=== PATIENT | female | born 1985 | race Caucasian/White ===

== ENCOUNTER 2020-06-02 14:22 | Observation (INO) ==
[2020-06-02] MEDS ORDERED: RINGER'S SOLUTION,LACTATED 1,000 ML IV PRN (16:27)
[2020-06-02] MEDS ORDERED: MAGNESIUM SULFATE IN WATER 50 ML, MAGNESIUM SULFATE IN WATER 50 ML IV ONE ×2 (16:27)
[2020-06-02] MEDS ORDERED: CALCIUM GLUCONATE 4.65 MEQ/10 ML VIAL IV PRN (16:27)
[2020-06-02] MEDS ORDERED: MAGNESIUM SULFATE IN WATER 1,000 ML IV SCH (16:30)
[2020-06-02 16:42] VITALS: BP 124/85
[2020-06-02] MEDS ORDERED: BETAMETHASONE ACETATE,SOD PHOS 6 MG/ML VIAL IM ONE (17:00)
--- NOTE | 2020-06-02 17:11 | HP ---
Chief Complaint - Chief Complaint Date of Service: 06/02/20 Time of Service: 16:56 Chief Complaint: elevated LFTs, r/o severe preeclampsia History of Present Illness: 34 yo at 33 2/7 weeks presented today for routine OB visit with elev ated/labile BPs (133/99, 154/87, 121/77). CBC, CMP, and Pr/Cr ratio revealed elevated AST of 101 and ALT of 158. Patient admits to seeing occasional flashes of light over the past couple days (non currently) and mild epigastric tenderness. She denies headache, edema, recent illness, taking any medications other than her PNV, n/v/f/c, sore throat, or cough. This complicated by breech presentation, obesity, hypothyroidism controlled on no meds, h/o preeclampsia, and prior LTCS. 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 Closed patellar dislocation (Resolved) Foot pain, left (Resolved) Internal derangement of knee (Resolved) Kidney stone Onset Date: 05/01/19 Knee contusion (Resolved) Knee pain, left (Resolved) Onset Date: ~07/22/18 Patellar dislocation (Resolved) Onset Date: ~07/22/18 Pre-eclampsia Onset Date: 2010 2010 Refused influenza vaccine (Resolved) Onset Date: ~09/11/18 Surgical History: Surgical History (Last Reviewed 06/02/20 @ 17:04 by Glenroy Sandoval DO) Previous section (Chronic) Onset Date: 10/05/10 H/O adenoidectomy Onset Date: ~2007 H/O hernia repair Onset Date: Unknown History of Onset Date: ~10/05/10 failure to progress, NRFHT History of cholecystectomy Onset Date: ~2010 Dr. George History of dilation and curettage Onset Date: 06/20/19 Suction curettage History of tonsillectomy Onset Date: ~12/02/07 History of wisdom tooth extraction Onset Date: Unknown Family History: Family History (Last Reviewed 06/02/20 @ 17:04 by Glenroy Sandoval DO) Grandmother , maternal Diabetes Father Hypertension Mother Alive and well Grandfather , maternal Leukemia Grandfather , paternal Myocardial infarction Daughter Hypertension Brother Kidney stone Social History: (Last Reviewed 06/02/20 @ 17:04 by Glenroy Sandoval DO) Social History: adopted: No care home: No Marital status: household members: spouse number of children: 1 current occupational status: other 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 current occupational exposures/hazards: No Highest level of school completed/degree received: Associate degree: [employer] Sexually Active: Yes Service: No Tobacco: Smoking Status: Never smoker Alcohol: alcohol intake: current alcohol intake frequency: holiday/special occasion details: No alcohol since +UPT Substance Use: substance use type: does not use Dietary Habits: caffeine: Yes caffeine comment: 10 oz/day Type: carbonated beverages Exercise: frequency: does not exercise Yulisa/[employer]: agree to transfusion: Yes Review Of Systems (GEN) - Review of Systems Generalized/Overall Review: Present: No Symptoms Reported EENTM: Present: No Symptoms Reported Respiratory: Present: No Symptoms Reported Cardiac: Present: No Symptoms Reported Abdominal: Present: Abdominal Pain - mild epigastric discomfort Genitourinary: Present: No Symptoms Reported Musculoskeletal: Present: Back Pain - low back Neurological: Present: No Symptoms Reported Skin: Present: No Symptoms Reported Endocrine: Present: No Symptoms Reported Immunizations: IMMUNIZATION HX Immunizations Up to Date Yes History of Influenza Vaccine Yes Hx Pneumococcal Vaccination No Allergies/Adverse Reactions: Allergies Allergy/AdvReac Type Severity Reaction Status Date / Time Sulfa (Sulfonamide AdvReac Mild Diarrhea Verified 06/02/20 16:32 Antibiotics) sulfabenzamide AdvReac Mild Diarrhea Verified 06/02/20 16:32 Home Medications: HOME MEDICATIONS aspirin 81 mg tablet,delayed release 81 mg PO DAILY 04/28/20 [Last Taken Unknown] ferrous sulfate 325 mg (65 mg iron) tablet 325 mg PO DAILY #30 tab 04/28/20 [Last Taken Unknown] magnesium citrate 100 mg tablet 200 mg PO DAILY tab 04/28/20 [Last Taken Unknown] Vits96/Iron Fum/Folic [ S] 1 tab PO DAILY 06/02/20 [Last Taken Unknown] Exam - Exam Vital Signs: Vital Signs - Last Taken Temp 36.4 C 06/02/20 16:40 Pulse 109 H 06/02/20 16:40 Resp 16 06/02/20 16:40 BP 124/85 06/02/20 16:40 Pulse Ox 100 06/02/20 16:40 Constitutional: Present: Alert, Oriented x3, Cooperative, No distress ENT Exam: Present: hearing grossly normal Neck: Present: non-tender, trachea midline. Absent: thyromegaly Breasts: Present: Exam deferred Respiratory: Present: lungs clear, no respiratory distress Cardiovascular/Chest: Present: normal peripheral pulses, regular rate, rhythm, no edema, tachycardia - mild Abdomen: Present: soft, no rebound tenderness, tender - mild epigastric discomfort, other - Gravid /Rectal: Present: Exam deferred Extremity: Present: no pedal edema, no calf tenderness Skin Exam: Present: normal color, warm/dry, no cyanosis. Absent: jaundice Lymphatic: Present: no adenopathy Neurologic: Present: alert, normal mood/affect, oriented x 3 Appearance: Present: appropriate appearance, appropriate insight Eye contact: Present: cooperative, good eye contact, normal speech Thoughts: Present: normal thought pattern, normal mood /affect Assessment/Plan - Procedures Results: Admit to L&D for magnesium sulfate for seizure prophylaxis, betamethasone, and IV access. Discussed condition with Dr. Calzada at [facility] who recommends transfer to [facility] L&D with her as the accepting Dr. R/b/a to transfer discussed with the patient and she agrees with transfer. All questions answered. Transfer via ambulance to [facility] L&D on IV magnesium sulfate 2g/h. - Assessment/Plan (1) Preeclampsia Problem: Acute Qualifiers: Trimester: third trimester Qualified Code(s): O14.93 - Unspecified pre- eclampsia, third trimester (2) Elevated liver enzymes Assessment: r/o HELLP Problem: Acute (3) Obesity, morbid, BMI 40.0-49.9 Problem: Chronic (4) Previous section Problem: Chronic (5) Hypothyroid Problem: Resolved Qualifiers:
--- NOTE | 2020-06-02 17:38 | DS ---
Transfer Discharge Summary - Diagnosis(s)/Problems (1) Preeclampsia Problem: Suspected (2) Elevated liver enzymes Problem: Acute (3) Obesity, morbid, BMI 40.0-49.9 Problem: Chronic (4) Previous section Problem: Chronic (5) Hypothyroid Problem: Resolved - Course Description of Stay: Patient admitted to L&D from office for possible preeclampsia with severe features (elevated liver enzymes). She was started on IV magnesium sulfate 6g load, then 2g/h IV drip, given betamethasone 12mg IM x 1, and transferred to [facility] via ambulance in stable condition for further evaluation/tx. At time of transfer, patient had no SOB, chest pain, headache, abdominal pain, n/v/f/c, vaginal bleeding, or LOF. Consultation Done:: Dr. Melania Calzada Procedures Performed: see notes below - IV access, magnesium sulfate, betamethasone, NST - Medications Medications: Active Medications Lactated Ringer's (Lactated Ringers) 1,000 mls @ 30 mls/hr IV .Q24H PRN PRN Reason: HYDRATION Stop: 07/02/20 16:28 Last Admin: 06/02/20 16:55 Dose: 30 mls/hr Documented by: Magnesium Sulfate (Magnesium Sulfate 40 Gm) 1,000 mls @ 50 mls/hr IV .Q20H HAILY; Protocol Stop: 07/02/20 16:31 Last Admin: 06/02/20 17:20 Dose: 50 mls/hr Documented by: Discontinued Medications Betamethasone Acet/Betameth SodPhos (Betamethasone Acetate,Sod Phos 6 Mg/Ml Vial) 12 mg IM ONCE ONE Stop: 06/02/20 17:01 Last Admin: 06/02/20 16:54 Dose: 12 mg Documented by: Magnesium Sulfate/ Magnesium (Sulfate) 100 mls @ 200 mls/hr IV ONCE ONE; Protocol Stop: 06/02/20 16:56 Last Admin: 06/02/20 16:52 Dose: 200 mls/hr Documented by: - Disposition Disposition: Short Term Hospital Inpatient Condition: Stable Discharge Date: 06/02/20 Discharge Time: 17:36
== END 2020-06-02 17:30 | disposition short-term general hospital (02) ==
LOC: LAB → OB 14:22
PROVIDERS: ADMIT Obstetrics & Gynecology; ATTEND Obstetrics & Gynecology